=== PATIENT | female | born 1985 | race Caucasian/White ===

== ENCOUNTER 2016-07-19 19:57 | Inpatient (IN) | payer OTHER ==
[~2016-07-19] VITALS: Ht 157.5 cm; Wt 73.0 kg
[~2016-07-19 19:57] MED LIST: ACET650S13 RC; ALBU8.5H4 IH; ONDA8TAB7 PO
[2016-07-19] MEDS ORDERED: Lactated Ringer's 1,000 ML IV PRN (20:36)
[2016-07-19] MEDS ORDERED: Carboprost 250 mCg/mL Inj IM PRN (20:40)
[2016-07-19] MEDS ORDERED: Oxytocin 30 Units/500 mL LR 30 UNITS in IV Premix 1 EACH IV PRN (20:40)
[2016-07-19] MEDS ORDERED: Hemorrhage Kit, Post Partum XX ONE (20:40)
[2016-07-19] MEDS ORDERED: Oxytocin 10 Unit/mL Inj IM PRN (20:40)
[2016-07-19] MEDS ORDERED: Methylergonovine 0.2 mg/mL Inj IM PRN (20:40)
[2016-07-19] MEDS ORDERED: fentaNYL-PF 50 mCg/mL 2 mL Inj IVPUSH PRN (20:40)
[2016-07-19] MEDS ORDERED: Sodium Chloride LOK Flush 10 mL Syringe IVFLUSH PRN (20:40)
[2016-07-19] MEDS ORDERED: Penicillin G K Inj 5,000,000 UNITS in Dextrose 5% Minibag Plus 100 ML IV ONE (20:40)
[2016-07-19 20:53] LABS: BASOPHILS % (AUTO) 0.3 % (0-3); EOSINOPHILS % (AUTO) 0.4 % (0-5); MONOCYTES % (AUTO) 7.4 % (4-12); Mean Corpuscular Hemoglobin 32.7 pg (27.0-35.0); Mean Corpuscular Volume 94.4 fL (81-100); NEUTROPHILS % (AUTO) 66.6 % (40-74); Platelet Count 238 bil/L (150-400)
--- NOTE | 2016-07-19 21:02 | PCM.HPOB ---
Subjective Date of Service: Jul 19, 2016 Referring Provider: Admitting Physician: Primary Care Physician: Master Sethi Attending Physician: Dex Escudero MD Chief Complaint Contractions History of Present History of Present Illness 30 Y/O at 38w5 and ZULEMA 07/28/16 based on 6 weeks ultrasound. Contractions started 2-3 hours before presentation. No gush of fluid. Light vaginal bleeding. Good movements. positive Nausea and vomiting. No Headache no change in vision. complicated with: No care beside two office visits at 7 and 9 weeks. Asthma Fundal height less than date. GBS unknown. Perigestational bleed early in . History of influenza during this OB History: (2), Para (0), Term (0), Pre-term (0), ( 1 ectopic with salpingectomy ), Living (0) Past Medical History Obstetrical History: 04/2014 L salpingectomy Gynecologic History: LMP unknown Medical History: Asthma Hiatal Hernia Surgical History: L/S Left salpingectomy 04/2014 EGD colonoscopy Hx Tobacco Use: No Hx Alcohol Use: No Hx Substance Use: Yes (MJ ocassional) Review of Systems ROS 11 points ROS is negative except the positive items in HPI. Allergy Coded Allergies: Sulfa (Sulfonamide Antibiotics) (Verified Allergy, Severe, SWELLING, HIVES , 12/05/15) Animal Dander (Verified Allergy, Unknown, UNKNOWN, 12/05/15) Molds and Smuts (Verified Allergy, Unknown, UNKNOWN, 12/05/15) Soap (Verified Allergy, Unknown, Rash, 12/05/15) Rash after betadine in prep for surgery. pertussis vaccine,adsorbed (Verified Allergy, Unknown, UNKNOWN, 12/04/15) povidone-iodine (Verified Allergy, Unknown, Rash, 12/04/15) Rash after betadine in prep for surgery. Uncoded Allergies: LIDOCAINE JELLY (Allergy, Severe, Rash,Itching,, 05/12/14) IODINE - TOPICAL (Allergy, Intermediate, Rash, 05/12/14) POLLENS (Allergy, Unknown, UNKNOWN, 12/01/12) Exam Vital Signs BP 126/89 HR 68 Exam 140 moderate variability, positive accelerations and variable decelerations. Constitutional: Well-developed HEENT: PERRLA, Other (goiter right lobe enlarged more than left ) Lungs: Clear to Auscultation, Clear to Percussion Heart: Regular Rate/Rhythm, Normal S1, Normal S2 Abdomen: Gravid Extremities: Pulses Palpable x4 Neurological/Psychiatric: Alert, Oriented X3 Neuro: Reflexes 2+ (no edema ) Gynecologic: Normal: Cervix (was 2 cm at presentaion and made change to 4.5/100 %/0 station ) Labs/Diagnostics Ultra Sound cephalic by bedside US. Maternal Blood Type: O Group B Strep Results: Positive Additional Information Gonorrhea negative 12/11/15 Chlamydia negative 12/10/16 Hgb 13.5 12/22/15 OB Intrapartum Assessment/Plan Assessment 30 Y/O at 38w5 and ZULEMA 07/28/16 based on 6 weeks ultrasound. Active labor complicated with: No care beside two office visits at 7 and 9 weeks. Asthma Fundal height less than date. GBS unknown. GBS swab was collected. Term with no previous infant affected by GBS, will not start GBS prophylaxis. Perigestational bleed early in . History of influenza during this History of goiter. Pain Management: Desires epidural. admit with orders and labs ( labs, UDS, TSH) Ame Morillo MD Jul 19, 2016 21:02
[2016-07-19] MEDS ORDERED: EPHEDrine Sulfate 50 mg/mL Inj IVPUSH PRN (21:15)
[2016-07-19] MEDS ORDERED: fentaNYL 2 mCg/mL-Bupiv 0.125% 100 ML EPIDURAL SCH (21:15)
[2016-07-19] MEDS ORDERED: Lactated Ringer's 500 ML IV ONE (21:15)
[2016-07-19] MEDS ORDERED: Atropine 1 mg/10 mL (Code) Syringe IVPUSH PRN (21:15)
[2016-07-19] MEDS: Ondansetron 2 mg/mL 2 mL Inj IVPUSH PRN ×2 (21:31→22:24)
[2016-07-19] MEDS: Lactated Ringer's 1,000 ML IV SCH (21:38)
[2016-07-19 21:39] LABS: APPEARANCE,URINE HAZY (CLEAR,HAZY); COLOR,URINE YELLOW (YELLOW); OCCULT BLOOD,URINE LARGE (NEGATIVE)
[2016-07-19 21:40] LABS: UROBILINOGEN,URINE NORMAL (NORMAL)
--- NOTE | 2016-07-19 22:12 | PCM.HPANE ---
Patient Data Surgeon Admitting Provider:Ame Morillo MD Attending Provider:Ame Morillo MD Primary Care Physician:Master Sethi Other Provider: Reason for Visit Term Labor Check Ht/WT & BMI Body Mass Index Allergies Coded Allergies: Sulfa (Sulfonamide Antibiotics) (Verified Allergy, Severe, SWELLING, HIVES , 12/05/15) Animal Dander (Verified Allergy, Unknown, UNKNOWN, 12/05/15) Molds and Smuts (Verified Allergy, Unknown, UNKNOWN, 12/05/15) Soap (Verified Allergy, Unknown, Rash, 12/05/15) Rash after betadine in prep for surgery. pertussis vaccine,adsorbed (Verified Allergy, Unknown, UNKNOWN, 12/04/15) povidone-iodine (Verified Allergy, Unknown, Rash, 12/04/15) Rash after betadine in prep for surgery. Uncoded Allergies: LIDOCAINE JELLY (Allergy, Severe, Rash,Itching,, 05/12/14) IODINE - TOPICAL (Allergy, Intermediate, Rash, 05/12/14) POLLENS (Allergy, Unknown, UNKNOWN, 12/01/12) Past Anesthesia History Anesthesia History: Denies:: Anesthesia Reactions, Malignant Hyperthermia Diabetes History Hx Diabetes?: No MRSA MRSA: No Medications Hypertension Medication: No Home Meds Incl Beta Omaira: No Active Scripts Ondansetron ODT (Zofran ODT)8 Mg Tab.rapdis8 Mg PO TID PRN For Nausea #30 TABLET Prov:Roberto Lester MD 04/24/14 Reported Medications Acetaminophen (Acetaminophen Suppository)650 Mg Supp.qnrm278 Mg RC PRN PRN For Pain 09/11/14 Albuterol HFA 8.5 Gm Hfa.aer.ad1-2 Puff IH Q4 PRN For Wheezing #1 INHALER Ref 0 04/24/14 History History of ENT Problems?: Yes HEENT History: Positive for:: Sinus Problem Hx of Heart Problems?: No Cardiovascular History: Denies:: Congestive Heart Failure Hypertension Hx of Respiratory Problem?: Yes Respiratory History: Positive for:: Asthma Pneumonia (HX OF 12/2011 ED VISIT) Denies:: Tuberculosis Use of C-PAP Machine Hx Neurologic Problems?: Yes Neurological History: Positive for:: Headaches Hx of GI Problems?: Yes Gastrointestinal History: Positive for:: Gastroesphageal Reflux Heartburn Hx of Problems?: Yes Genitourinary History: Positive for:: Kidney Stones (C/OF FLANK PAIN RT) Urinary Tract Infection (RECUTTENT UTI'S & CYSTITIS) Female Hx: Positive for:: Currently Endometriosis Skin History: Denies:: History Skin Disorders? Pressure Ulcers Hx Musculoskeletal Problems?: Yes Musculoskeletal History: Denies:: Back Injury (C/OF BACK PAIN/FLANK PAIN) Hx of Psycho/Social Problems?: Yes Psycho Social History: Positive for:: Anxiety Hx Depression Hx Surgeries?: Yes (LT FALLOPIAN TUBE DUE TO ECTOPIC) Hx Any Other Health Problems?: Yes Other History: Denies:: Cancer Endocrine Disease Hospitalization Thyroid Disease History Blood Transfusions: Denies:: Blood Transfuse Reaction Blood Transfusions Hx Diabetes: No Hx Alcohol Use: NoHx Substance Use: Yes (MJ ocassional) Smoking Status: Never Smoker Have You Smoked inLast 12 mo: No Stop/Bang SAMANTHA Risk Assessment: Low Risk, <3 Yes Risk Assessment Category Category 1A: Patient has history of documented sleep apnea, and HAS NOT received any narcotic, sedative or anesthesia administration during this stay. Category 1B: Patient has history of documented sleep apnea, and HAS received any narcotic , sedative or anesthesia administration during this stay Category 2: Patient has SUSPECTED Obstructive Sleep Apnea, and HAS received any narcotic , sedative or anesthesia administration during this stay. Category 3: Patient has SUSPECTED Obstructive Sleep Apnea and HAS NOT received narcotic, sedative or anesthesia administration during this stay. Category 4: Outpatient in Procedural Areas with known sleep apnea or who screen positive for High Risk via the STOP/BANG questionnaire. Exam Exam General Appearance: Moderate Distress HEENT/AIRWAY: MP 2 Lungs: Clear to Auscultation, Normal Air Movement Heart: Exam Unremarkable, Regular Rate/Rhythm, No Murmurs/Rubs/Gallops Meds/Labs/Diagnostics Labs Test 07/19/16 20:50 07/19/16 21:06 White Blood Count 10.7th/mm3 (3.8-10.1) Red Blood Count 3.76mil/mm3 (3.90-5.20) Hemoglobin 12.3g/dL (12.0-15.6) Hematocrit 35.5% (35.0-46.0) Mean Corpuscular Volume 94.4fL (81-100) Mean Corpuscular Hemoglobin 32.7pg (27.0-35.0) Mean Corpuscular Hemoglobin Concent 34.6% (32.0-37.0) Red Cell Distribution Width 13.0% (12.3-15.4) Platelet Count 238bil/L (150-400) Neutrophils (%) (Auto) 66.6% (40-74) Lymphocytes (%) (Auto) 25.2% (14-46) Monocytes (%) (Auto) 7.4% (4-12) Eosinophils (%) (Auto) 0.4% (0-5) Basophils (%) (Auto) 0.3% (0-3) Plan Impression Patient chart reviewed, patient interviewed and anesthestic plan with risks, benefits, and alternatives discussed, and informed consent obtained. NPO Status: 12/03/2199 ASA Physical Status: ASA2 Mod Systemic Disease Anesthetic Plan: Epidural Bene/Risks/Altern/Consents: Yes HP Complete Prior to Induction: Yes Angus Moss MD Jul 19, 2016 21:18
[2016-07-19] MEDS ORDERED: Promethazine Inj 12.5 MG in Dextrose 5%-Pha MIX 50 ML IV ONE (23:40)
[2016-07-20 02:07] LABS: Hemoglobin A1C 5.3 % (4.8-5.6)
[2016-07-20] MEDS: Lactated Ringer's 1,000 ML IV SCH ×6 (03:29→21:15)
[2016-07-20] MEDS ORDERED: Witch Hazel-Glycerin Pads TOPICAL PRN (03:30)
[2016-07-20] MEDS ORDERED: Carboprost 250 mCg/mL Inj IM PRN (03:30)
[2016-07-20] MEDS ORDERED: Hemorrhage Kit, Post Partum XX ONE (03:30)
[2016-07-20] MEDS ORDERED: Oxytocin 10 Unit/mL Inj IM PRN (03:30)
[2016-07-20] MEDS ORDERED: Methylergonovine 0.2 mg/mL Inj IM PRN (03:30)
[2016-07-20] MEDS ORDERED: Benzocaine (Dermoplast) 20% 60 Gm Spray TOPICAL PRN (03:30)
[2016-07-20] MEDS ORDERED: Oxytocin 30 Units/500 mL LR 30 UNITS in IV Premix 1 EACH IV PRN (03:30)
--- NOTE | 2016-07-20 04:17 | OP ---
[address] [address] OPERATIVE REPORT PATIENT: HILARY CROWE : 1985 MR#: [id number] ADMIT: 07/19/2016 JOB ID: [id number] DATE OF SURGERY: 07/20/2016 PREOPERATIVE DIAGNOSIS(ES): 1. Intrauterine at 38 weeks and 6 days based on six week ultrasound, Estimated date of delivery is July 28, 2016. 2. Active spontaneous labor. 3. No care besides two office visits at seven and nine weeks. 4. Asthma. 5. Fundal height less than date. 6. Group B strep unknown. 7. History of perigestational bleed early in , resolved at nine weeks. 8. History of influenza during this . 9. History of goiter with elevated TSH of 5 and free T4 within normal limits of 1.08. POSTOPERATIVE DIAGNOSIS(ES): 1. Status post Spontaneous vaginal delivery at 38 weeks and 6 days based on six week ultrasound, Estimated date of delivery is July 28, 2016. 2. No care besides two office visits at seven and nine weeks. 3. Asthma. 4. Fundal height less than date. 5. Group B strep unknown. 6. History of perigestational bleed early in , resolved at nine weeks. 7. History of influenza during this . 8. History of goiter with elevated TSH of 5 and free T4 within normal limits of 1.08. PROCEDURE: 1. Spontaneous vaginal delivery. 2. Repair of periurethral laceration. SURGEON: Ame Morillo MD. PROCEDURE: This is a 30 years old 2, para 0-0-1-0, presented at 38 weeks and five days with regular contractions that started at around 17:00 on July. At presentation, cervix was 2 cm, 80% and -2 at 19:52. She continued to have regular contraction and progressed in labor to be completely dilated at around of 1:45 a.m. July 20, 2016. Spontaneous rupture of membranes was at 1:32 a.m. July 20, 2016, clear fluid. Patient delivered July 20, 2016, at 2:26 a.m. via spontaneous vaginal delivery over intact perineum under epidural anesthesia. Delivered a female infant in cephalic presentation in occiput anterior position with no nuchal cord. Shoulders delivered without difficulty. The was placed on the maternal abdomen. After one minute of delayed cord clamp, the cord was clamped and cut, and the infant was handed off to the waiting school bus aide. Cord segment was collected for gases and cord blood was collected for typing. The placenta delivered spontaneously intact at 2:38 a.m. After delivery of the placenta, the uterus fundus was massaged with good tone, and IV oxytocin was started for hemorrhage prophylaxis. The perineum was examined and a single periurethral laceration on the right was noted away from the urethra. It was approximated with two simple interrupted stitches with 3-0 Vicryl. The perineum was examined. No further lacerations were noted. The fundus was firm. Estimated blood loss 200 mL. Infant's weight was 2309 g, equivalent to 5 pounds and 1 ounce. Apgars 9 at one minute and 9 at five minutes. Cord gases: pH 7.401, pCO2 35, pO2 37.2, bicarb 21.7, base -2.5. All instruments, needles and sponge counts were correct x2. Mother and are recovering in the delivery room in stable condition. Ame Schmid MD, was present and scrubbed and performed the entire delivery. BLAZE
[2016-07-20] MEDS: Penicillin G K Inj 3,000,000 UNITS in IV Premix 1 EACH IV SCH ×5 (04:30→20:30)
--- NOTE | 2016-07-20 07:04 | PCM.ANEP2 ---
Post Anesthesia Evaluation ASA/CMS Post Anesthesia VS in Patient's Normal Range?: Yes Resp Stable; Airway Patent?: Yes CV Function & Hydration Stable: Yes Mental Status Recovered?: Yes Pain control Satisfactory?: Yes N/V Control Satisfactory?: Yes Angus Moss MD Jul 20, 2016 07:04
[2016-07-20] MEDS: oxyCODONE-Acetamin 5-325 mg Tablet PO PRN ×4 (07:40→23:27)
--- NOTE | 2016-07-20 09:03 | DRSVH ---
PROCEDURE: US OB 1 OR MORE FETUS LIMITED INDICATIONS: LIMITED OUTSIDE/PRIOR DATING DATA: Last menstrual period (LMP): Not known. LMP-based estimated date of delivery (ZULEMA): Not applicable. First dating scan (date and location): 11/13/2015. Estimated date of delivery (ZULEMA) from first dating scan: 07/28/2016.. TECHNIQUE: Real-time scanning was performed of the fetus, with image documentation and biometric measurements. COMPARISON: [facility] Ultrasound, US, US OB<14 WKS+OB TRANSVAG, 12/24/2015, 14:53. FINDINGS: General: A single living intrauterine gestation is present. Presentation: Vertex. Placenta: Placental position is anterior, without previa. OB-SALES SERVICE TECHNICIAN Ultrasound Procedure Report Summary Fetus Summary Estimated Gestational Age from first dating scan: 38 weeks, 5 days Heart Rate: 133 bpm Findings(Amniotic Sac) Amniotic Fluid Index: 6.50 cm Other: Not applicable. IMPRESSION: 1. Single living intrauterine gestation redemonstrated. 2. Amniotic fluid index near the 5th percentile for age. Dictated by: Joseph Dunham RR Interpreted: Khanh Adamson MD on 07/20/2016 at 9:01 Transcribed by: EDGAR on 07/20/2016 at 9:02 Approved by: Khanh Adamson M.D. on 07/20/2016 at 22:10
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
[2016-07-21] MEDS: Penicillin G K Inj 3,000,000 UNITS in IV Premix 1 EACH IV SCH ×6 (00:30→20:30)
[2016-07-21] MEDS: Lactated Ringer's 1,000 ML IV SCH ×3 (03:29→19:29)
[2016-07-21] MEDS: oxyCODONE-Acetamin 5-325 mg Tablet PO PRN ×5 (04:19→23:45)
[2016-07-21 07:03] LABS: Mean Corpuscular Volume 96.3 fL (81-100)
--- NOTE | 2016-07-21 10:11 | PCM.DIOB ---
Obstetrical Disch Instruction Date of Service: Jul 21, 2016 Dates of Hospitalization Date of Hospital Admission Jul 19, 2016 at 20:57 Providers Admitting Physician: Ame Morillo MD Primary Care Physician: Susan Attending Physician: Ame Morillo MD Discharge Diagnosis Discharge Diagnosis Anemia Limited care . Problems: (1) (spontaneous vaginal delivery) Status: Acute ICD Code: O80 (2) Limited care Status: Acute ICD Code: O09.30 (3) Marijuana use Status: Acute ICD Code: F12.10 Diet Discharge Diet: No restrictions Activity Discharge Activity-General: Pelvic Rest for 6 weeks Additional Instructions Discharge Instructions Continue your vitamin. Take Ibuprofen as needed for pain. Please take the iron and vitamin C together for your anemia. Be sure to follow up in 2 weeks and then again in 6 weeks at [facility]. Pelvic rest for 6 weeks (nothing per vagina including intercourse, tampons) If you have a fever greater than 100.4, please call [facility]. There is always someone irrigation equipment remover to talk to. If you have an increase in bleeding, call [facility]. If you have a lot of bleeding suddenly, especially if you have symptoms of dizziness & weakness with it, get emergency help. When you see [facility] in two weeks, you will be informed of the results of all the labs. If you start experiencing extreme depression, especially if you feel that you are a danger to yourself or your family, seek emergency help. You have been through a lot -- BE SURE TO TAKE CARE OF YOURSELF. Follow Up Plan [facility] Follow-up appointment: Weeks (2) Call your provider for: Fever or Chills, Shortness of breath, Heavy vaginal bleeding, Excessive constipation Shirley Durand DO Jul 21, 2016 10:11
[2016-07-21] MEDS ORDERED: ASCO-294 PO (10:17)
[2016-07-21] MEDS ORDERED: DOCU-41 PO (10:17)
[2016-07-21] MEDS ORDERED: IBUP-1827 PO (10:17)
[2016-07-21] MEDS ORDERED: FERR-83 PO (10:17)
--- NOTE | 2016-07-21 10:42 | PCM.DC.OB ---
Obstetrical Discharge Summary Date of Service Jul 22, 2016 Date of hospital admission Jul 19, 2016 at 20:57 Date of Discharge: Jul 22, 2016 Providers Admitting Physician: Ame Morillo MD Primary Care Physician: Susan Attending Physician: Ame Morillo MD Diagnosis at Time of Discharge Limited care Anemia Marijuana use Problems: (1) (spontaneous vaginal delivery) Status: Acute ICD Code: O80 (2) Limited care Status: Acute ICD Code: O09.30 (3) Marijuana use Status: Acute ICD Code: F12.10 Brief History and Physical: 30-year-old who presented to the [facility] in active labor at 38wks 5days and ZULEMA 07/28/16 per 1st trimester US (05/12/16). complicated with limited care with only two office visits at 7 and 9 weeks. Fundal height on admission was less than date and GBS status unknown. Patient reported a history of perigestational bleed early in her as well as a history of influenza. The was not planned and the patient was on Depo, she reports uncertainty surrounding the paternity noting that this contributed to her avoidance of care. Social work was consulted and continued to follow until patient was discharged. GBS status was unknown. HBsAg negative, RPR nonreactive, HIV nonreactive, Rubella immune, gonorrhea/chlamydia negative, HbA1c 5.3, and urine tox screen positive for cannabinoids. Vitals: BP 126/89 HR 68 Constitutional: Well-developed HEENT: PERRLA, Other (goiter right lobe enlarged more than left ) Lungs: Clear to Auscultation, Clear to Percussion Heart: Regular Rate/Rhythm, Normal S1, Normal S2 Abdomen: Soft, uterus firm Extremities: Pulses Palpable x4 Neurological/Psychiatric: Alert, Oriented X3 Hospital Course: 30-year-old presented in active labor and discharged on post- day 1 after . At presentation, cervix was 2 cm, 80% and -2 at 19:52. She had SROM at 1:32 a.m. and delivered at 2:26 a.m. on July 20, 2016 via spontaneous vaginal delivery with a single periurethral laceration noted which was repaired. complicated with limited care with only two office visits at 7 and 9 weeks. Fundal height on admission was less than date and GBS status unknown. Patient reported a history of perigestational bleed early in her as well as a history of influenza. The was not planned and the patient was on Depo, she reports uncertainty surrounding the paternity noting that this contributed to her avoidance of care. Social work was consulted and continued to follow until patient was discharged. Acetaminophen (Acetaminophen Suppository) 650 Mg Supp.rect 650 MG RC PRN PRN PRN For Pain (Reported) Albuterol HFA (Albuterol HFA) 8.5 Gm Hfa.aer.ad 1-2 PUFF IH Q4 PRN PRN For Wheezing (Reported) Ascorbate Calcium (Vitamin C) 500 Mg Tablet 500 MG PO DAILYWD Prescribed by: ROSS LOJA, DO Docusate Sodium (Colace) 100 Mg Capsule 100 MG PO BID PRN PRN For Constipation Prescribed by: ROSS LOJA, DO Ferrous Sulfate (Ferrous Sulfate) 325 Mg Tablet 325 MG PO DAILY Prescribed by: ROSS LOJA, DO Ibuprofen (Ibuprofen) 600 Mg Tablet 600 MG PO Q8H PRN PRN For Mild Pain Prescribed by: ROSS LOJA, DO Ondansetron ODT (Zofran ODT) 8 Mg Tab.rapdis 8 MG PO TID PRN PRN For Nausea Prescribed by: GREY CHRISTENSEN MD Follow-up plan Follow up at [facility] in 2 weeks. Discharge Diet: No restrictions Discharge Activity-General: Pelvic Rest for 6 weeks Patient instructions Continue your vitamin. Please take the iron and vitamin C together for your anemia. Ibuprofen 800mg, take 1 tab every 8 hours by mouth as needed for pain. Be sure to follow up in 6 weeks at [facility]. Pelvic rest for 6 weeks (nothing per vagina including intercourse, tampons) If you have a fever greater than 100.4, please call [facility]. There is always someone cotton jammer to talk to. If you have an increase in bleeding, call [facility]. If you have a lot of bleeding suddenly, especially if you have symptoms of dizziness & weakness with it, get emergency help. When you see [facility] in six weeks, you will be informed of the results of all the labs. If you start experiencing extreme depression, especially if you feel that you are a danger to yourself or your family, seek emergency help. You have been through a lot -- BE SURE TO TAKE CARE OF YOURSELF. Attending Statement: I saw patient. Agree with above evaluation and plan. Ross Loja DO Jul 21, 2016 10:42 Nasra Harry MD Jul 27, 2016 19:51
--- NOTE | 2016-07-21 13:40 | PATH ---
SURGICAL PATHOLOGY Attending Physician:Ame Morillo CASE STATUS: Signed Out PATIENT NAME: HILARY CROWE PID: [id number] : 1985 DATE COLLECTED:07/19/2016 00:00 SPECIMEN: Placenta CLINICAL HISTORY: IUGR 1). PLACENTA FINAL DIAGNOSIS: 1.PLACENTA WITH UMBILICAL CORD AND MEMBRANES: 1. PLACENTA: 268 GRAMS. NEGATIVE FOR EVIDENCE OF INFARCTION. NEGATIVE FOR SIGNIFICANT VASCULAR LESIONS. NEGATIVE FOR SIGNIFICANT INFLAMMATION. 2.UMBILICAL CORD: 13.8 CM IN LENGTH WITH THREE NORMAL BLOOD VESSELS. CORD IS ATTACHED 3.8 CM FROM THE PLACENTAL EDGE. NEGATIVE FOR SIGNIFICANT INFLAMMATION. 3. MEMBRANES: RUPTURED 9.5 CM FROM THE FREE PLACENTAL EDGE. NEGATIVE FOR SIGNIFICANT INFLAMMATION. ICD10 CODE P05.9 GROSS DESCRIPTION: The specimen is received in formalin, labeled with the patient's name and consists of an intact placenta and includes placental disc (268 g, 13.8 x 12.7 x 2.6 cm), umbilical cord received in 2 pieces (length-13.8 cm, diameter-up to 1.3 x 1.3 cm) and membranes. The membranes are ruptured 9.5 cm from the free edge of the placenta and are semi-translucent. The umbilical cord is attached 3.8 cm from the edge of the placenta and contains 3 vessels. The surface is smooth and shiny with no evidence of meconium. The maternal surface is dark maroon with normal cotyledon formation. The placental disc is spongy with no hematomas, infarcts, nodules, masses, or lesions. Section code: (A) edge of placenta with membranes, umbilical cord; (B-C, D-E) placenta, 2 bisected full thickness sections. 07/20/16 MICRO DESCRIPTION: See diagnosis. ICD-9 CODES: CPT CODES: 1: 15631 Electronically Signed Out Kimo Larson MD [facility] [address], [place] [address] Technical component performed at [facility], [address], [place], [address]
[2016-07-22] MEDS: oxyCODONE-Acetamin 5-325 mg Tablet PO PRN ×2 (04:59→11:09)
[2016-07-22 11:39] VITALS: BP 125/79; PULSE 52; RESP 18
== END 2016-07-22 13:11 | disposition home or self-care (01) | DRG 775 ==
LOC: FBCO 19:57 → FBC 20:57
PROVIDERS: ADMIT Obstetrics & Gynecology; ATTEND Obstetrics & Gynecology
PROC: 10E0XZZ Delivery of Products of Conception, External Approach (ICD-10-PCS; principal; 2016-07-20)
PROC: 0TQD7ZZ Repair Urethra, Via Natural or Artificial Opening (ICD-10-PCS; 2016-07-20)
DX: O71.5 Other obstetric injury to pelvic organs (principal); O99.323 Drug use complicating pregnancy, third trimester; O09.33 Supervision of pregnancy with insufficient antenatal care, third trimester; Z3A.38 38 weeks gestation of pregnancy; Z37.0 Single live birth; F12.10 Cannabis abuse, uncomplicated; Z64.0 Problems related to unwanted pregnancy